=== PATIENT | male | born 1970 | race Caucasian/White ===

== ENCOUNTER 2018-06-30 22:28 | Emergency (ER) | payer BC ==
[~2018-06-30] VITALS: Ht 188 cm; Wt 127.0 kg
[2018-06-30] MEDS ORDERED: FLUORESCEIN SODIUM 1 MG STRIP ONE (23:53)
[2018-07-01] MEDS ORDERED: FLUORESCEIN SODIUM 1 MG STRIP OP ONE
--- NOTE | 2018-07-01 | NUR ---
DR GONZALEZ INTO EVAL PATIENT
--- NOTE | 2018-07-01 00:13 | NUR ---
Patient discharged to home in stable conditon. Written and verbal after care instructions given. Patient verbalizes understanding of instructions.
[2018-07-01 00:14] VITALS: BP 122/80
== END 2018-07-01 00:16 | disposition home or self-care (01) ==
LOC: ER 22:30
DX: S01.81XA Laceration without foreign body of other part of head, initial encounter (principal); H11.31 Conjunctival hemorrhage, right eye; Y04.2XXA Assault by strike against or bumped into by another person, initial encounter; Y93.89 Activity, other specified; Y92.89 Other specified places as the place of occurrence of the external cause; Y99.8 Other external cause status
CPT/HCPCS: A4663